=== PATIENT | female | born 1980 | race Caucasian/White ===

== ENCOUNTER → 2016-11-08 | Outpatient (CLI) | payer OTHER, BC ==
[~2016-11-08] MED LIST: BUPR100CR PO; LORTA5 PO; MINO100 PO; TAB-TAB PO
[2016-11-08 10:28] LABS: HEMATOCRIT 36.6 % (35.0-46.0); MEAN CELL VOLUME 86.3 FL (80.0-100.0); MEAN CORPUSCULAR HEMOGLOBIN 29.4 PG (27.0-34.0); MEAN CORPUSCULAR HGB CONC 34.1 % (32.0-36.0); PLATELET COUNT 163 TH/MM3 (150-450); RED BLOOD COUNT 4.24 MIL/MM3 (4.00-5.30); RED CELL DISTRIBUTION WIDTH 13.2 % (11.6-17.2); REVIEW FLAG FINAL; WHITE BLOOD COUNT 5.2 TH/MM3 (4.0-11.0)
[2016-11-08 11:24] LABS: ALKALINE PHOSPHATASE 61 U/L (45-117); BLOOD UREA NITROGEN 8 MG/DL (7-18); GLOMERULAR FILTRATION RATE 80 ML/MIN (>89); GLUCOSE,FASTING 108 MG/DL (74-99)
[2016-11-08 11:25] LABS: ALT (GPT) 19 U/L (10-53); ANION GAP 7 MEQ/L (5-15); AST (GOT) 13 U/L (15-37); BICARBONATE 28.1 MEQ/L (21.0-32.0); CHLORIDE 104 MEQ/L (98-107); HDL CHOLESTEROL 47.9 MG/DL (40.0-60.0); LDL CHOLESTEROL 47 MG/DL (0-99); POTASSIUM 4.4 MEQ/L (3.5-5.1); SODIUM (NA) 139 MEQ/L (136-145); TOTAL BILIRUBIN ADULT 0.7 MG/DL (0.2-1.0)
[2016-11-08 16:12] LABS: HEMOGLOBIN A1a 0.9 %; HEMOGLOBIN A1b 1.5 %; HEMOGLOBIN LA1C 1.9 %; HEMOGLOBIN P3 3.4 %
== END ==
LOC: CLAB 09:42
PROVIDERS: ATTEND Family Medicine
DX: E11.9 Type 2 diabetes mellitus without complications (principal)
CPT/HCPCS: 36415; 80053; 80061; 82043; 83036; 84443; 85027

== ENCOUNTER → 2016-12-07 | Day surgery (SDC) | payer OTHER, BC ==
[~2016-12-07] VITALS: Ht 177.8 cm; Wt 111.9 kg
[~2016-12-07] MED LIST changes: +ACETAMINOPHEN 1000 MG/100 ML VIAL IV ONE; +BUPIVACAINE/EPINEPHRINE 0.5% PF 30 ML VIAL ONE; +CHLORHEXIDINE GLUCONATE 2 % 1 PACK (2 CLOTHS) TOPICAL PRN; +DEXAMETHASONE SOD PHOS 4 MG/ML VIAL ONE; +DO NOT ADM ANY ANTICOAGULANT DRUGS PRN; +FAMOTIDINE 20 MG/2 ML VIAL ONE; +HEPARIN SODIUM - IV 10,000 UNITS/10 ML VIAL ONE; +HEPARIN SODIUM - SQ 10,000 UNITS/ML VIAL ONE; +INSULIN HUMAN REGULAR 1,000 UNITS/10 ML VIAL SQ PRN; +LACTATED RINGER'S 1000 ML IV PRN; +METOPROLOL TARTRATE 25 MG TAB PO PRN; +MIDAZOLAM HCL 2 MG/2 ML VIAL ONE; +ONDANSETRON HCL 4 MG/2 ML VIAL ONE; +POVIDONE IODINE 5% (ANTISEPSIS KIT) 4 APPLICATIONS EACH NARE PRN; +PROPOFOL 200 MG/20 ML AMP IV ONE; +PROTAMINE SULFATE 50 MG/5 ML VIAL ONE; +SODIUM CHLORID 0.9% 500 ML IV PRN; +ceFAZolin 2 GM PREMIX 50 ML ONE; +fentaNYL CITRATE 250 MCG/5 ML AMP ONE; +oxyCODONE/ACETAMINOPHEN 5 MG/325 MG TAB PO PRN
[2016-12-07 08:02] VITALS: BP 121/79; PULSE 62; RESP 18; TEMP 98.1; O2SAT 99
--- NOTE | 2016-12-07 08:31 | HHI.HP ---
History of Present Illness Chief Complaint: R>L LE varicosities History of Present Illness 36 yo female with longstanding varicosities R LE, several episodes of bleeding but no DVT. Worn compression without relief. Presents for R LE stab phlebectomy. No interval changes since seen in clinic. 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 [employer] Home Medications Reported Medications Minocycline 100 Mg [id number] Mg PO BID Ref 0 12/07/16 Bupropion HCl ER 12 HR (Wellbutrin SR 12 HR)100 Mg [id number] Mg PO Q12HR Ref 0 12/07/16 Coded Allergies: No Known Allergies (Unverified , 12/07/16) Review of Systems Constitutional: DENIES: Fever, Chills, Change in appetite Integumentary: DENIES: Abnormal pigmentation, Pruritus, Rash, Nail changes, Breast masses, Breast skin changes, Nipple discharge Physical Exam Vitals/I&O Date Time Temp Pulse Resp B/P Pulse Ox O2 Delivery O2 Flow Rate FiO2 12/07/16 08:02 98.1 62 18 121/79 99 Neuro: alert, oriented HEENT: NC/AT Neck: no JVD Heart: reg rate Lungs: unlabored breathing Vascular: palpable pedal pulses Extremities: R LE with serpentine varicosity R LE coursing from anterior thigh to lateral calf Assessment and Plan Plan R LE stab phlebectomy Consent confirmed, procedure discussed, operative site marked Shiva Lazaro MD Dec 07, 2016 08:31
--- NOTE | 2016-12-07 10:21 | HHI.PR ---
Immediate Post Op Note Procedure Date: Dec 07, 2016 Pre Op Diagnosis: symptomatic R LE varicosities Post Op Diagnosis: symptomatic R LE varicosities Surgeon: Shiva Lazaro Roofer(s): none Procedure: R LE stab phlebectomy (29 incisions) Findings: venous hypertension Complications: none Specimen(s) removed: none for pathology Estimated blood loss: 100 mL Anesthesia: LMA Drains: None Patient to: PACU Patient Condition: Good Date/Time of Procedure: SEE SURGICAL CARE RECORD Shiva Lazaro MD Dec 07, 2016 10:21
[2016-12-07 11:25] VITALS: TEMP 97.9
[2016-12-07 12:45] VITALS: BP 109/65; PULSE 66; RESP 17; O2SAT 97
--- NOTE | 2016-12-08 18:04 | MP ---
cc: ONOFRE LAZARO MD DATE OF SURGERY 12/07/16 PREOPERATIVE DIAGNOSIS Right lower extremity symptomatic varicosities POSTOPERATIVE DIAGNOSIS Right lower extremity symptomatic varicosities PROCEDURE Right lower extremity stab thrombectomy (29 incisions) SURGEON Dudley Lazaro MD ANESTHESIA General INDICATIONS Ms. Mayfield is a very healthy 36 year old lady with symptomatic right lower extremity varicosities. She was taken tot he operating room for stab thrombectomy. She has failed compression therapy. PROCEDURE IN DETAIL Informed consent was obtained from patient. She was taken to the operating room and placed supine on the operating room table. An appropriate time out was taken to ensure the patient identity, operative site, and the planned procedure. The administration of 2 grams of Ancef was initiated prior to the skin incision, will be discontinued after a single preoperative dose. Everyone in the room agreed with the time-out and we proceeded. Her right leg was prepped and draped and a series of stab incisions was made with an 11 blade. The vein was thrombectomized without difficulty. Manual pressure was held for hemostasis. In total, 29 incisions were made. The wounds were infiltrated with Marcaine and closed with 5-0 Chromic. The wound was then dressed and a Kaushal bandage was applied. Sponge, needle counts were correct at the end of the case. I was present and scrubbed for the entire procedure. There were no apparent complications. Onofre Lazaro MD RJMelia/ /10:25 AM /5:48 PM [facility]
== END | disposition home or self-care (01) ==
LOC: HSDC 07:10
PROVIDERS: ATTEND Surgery
DX: I83.891 Varicose veins of right lower extremity with other complications (principal)
CPT/HCPCS: 01520; 37766; J0131; J0690; J1100; J2250; J2405; J3010; J1644; J2720

== ENCOUNTER → 2016-12-20 | Day surgery (SDC) | payer OTHER, BC ==
[~2016-12-20] VITALS: Ht 175.3 cm; Wt 112.3 kg
[~2016-12-20] MED LIST changes: -ACETAMINOPHEN 1000 MG/100 ML VIAL IV ONE; +APREPITANT 40 MG CAP ONE; +BUPIVACAINE HCL PF 0.5% 30 ML VIAL ONE; -BUPIVACAINE/EPINEPHRINE 0.5% PF 30 ML VIAL ONE; -HEPARIN SODIUM - IV 10,000 UNITS/10 ML VIAL ONE; -HEPARIN SODIUM - SQ 10,000 UNITS/ML VIAL ONE; +KETOROLAC TROMETHAMINE 60 MG/2 ML (IM) VIAL IM ONE; -LORTA5 PO; +ONDANSETRON HCL 4 MG/2 ML VIAL IV PUSH ONE; -ONDANSETRON HCL 4 MG/2 ML VIAL ONE; -PROTAMINE SULFATE 50 MG/5 ML VIAL ONE; -TAB-TAB PO; -ceFAZolin 2 GM PREMIX 50 ML ONE; +ceFAZolin INJ 1,000 MG VIAL IV ONE; -oxyCODONE/ACETAMINOPHEN 5 MG/325 MG TAB PO PRN
[2016-12-20 06:39] VITALS: BP 113/75; PULSE 73; RESP 20; TEMP 98.3; O2SAT 99
--- NOTE | 2016-12-20 07:04 | HHI.HP ---
History of Present Illness Chief Complaint: LEFT leg symptomatic venous insufficiency History of Present Illness 36 yo female, otherwise healthy, with symptomatic venous insufficiency L LE. She underwent R LE stab phlebectomy a few weeks ago and did very well. Happy with the results. No history of DVT. Has been wearing compression faithfully. 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 [employer] Home Medications Reported Medications Minocycline 100 Mg [id number] Mg PO DAILY Ref 0 12/07/16 Bupropion HCl ER 12 HR (Wellbutrin SR 12 HR)100 Mg [id number] Mg PO Q12HR Ref 0 12/07/16 Coded Allergies: No Known Allergies (Unverified , 12/20/16) Review of Systems Constitutional: DENIES: Diaphoretic episodes, Fatigue, Fever, Weight gain, Weight loss, Chills, Dizziness, Change in appetite, Night Sweats Cardiovascular: DENIES: Chest pain, Palpitations, Syncope, Dyspnea on Exertion , PND, Lower Extremity Edema, Orthopnea, Claudication Physical Exam Vitals/I&O Date Time Temp Pulse Resp B/P Pulse Ox O2 Delivery O2 Flow Rate FiO2 12/20/16 06:39 98.3 73 20 113/75 99 Neuro: alert, BANKS HEENT: NC/AT Neck: no JVD Heart: reg rate, rhythm Lungs: clear B Vascular: palp DP bilaterally Extremities: R LE incisions healing nicely L LE with lateral thigh varicosity, marked N/A N/A Assessment and Plan Plan Ready for LEFT leg stab phlebectomy. Operative site marked. All questions answered. To OR. Shiva Lazaro MD Dec 20, 2016 07:04
--- NOTE | 2016-12-20 09:01 | HHI.PR ---
Immediate Post Op Note Procedure Date: Dec 20, 2016 Pre Op Diagnosis: L LE venous insufficiency Post Op Diagnosis: L LE venous insufficiency Surgeon: Shiva Lazaro Card Tender(s): none Procedure: L LE stab phlebectomy (35 incisions) Findings: friable veins Complications: none Specimen(s) removed: none for pathology Estimated blood loss: 100mL Anesthesia: LMA Fluids: 1000 mL IVF Patient to: PACU Patient Condition: Good Date/Time of Procedure: SEE SURGICAL CARE RECORD Shiva Lazaro MD Dec 20, 2016 09:01
[2016-12-20 11:25] VITALS: BP 110/61; PULSE 58; RESP 16; TEMP 97.7; O2SAT 98
--- NOTE | 2016-12-22 10:41 | MP ---
cc: SHIVA LAZARO MD DATE OF SURGERY: 12/20/2016 PREOPERATIVE DIAGNOSIS Left upper extremity symptomatic venous insufficiency. POSTOPERATIVE DIAGNOSIS Left upper extremity symptomatic venous insufficiency. PROCEDURE Left lower extremity stab phlebectomy (35 incisions). ATTENDING SURGEON Shiva Lazaro ANESTHESIA LMA. INDICATION Ms. Mayfield is a 36-year-old lady with symptomatic venous insufficiency on the lateral thigh. She has worn compression therapy with inadequate relief. She is taken to the operating room for a stab phlebectomy. DESCRIPTION OF PROCEDURE Informed consent was obtained from the patient. She was taken to the operating room and placed supine on the operating table. An appropriate timeout was taken to ensure the patient's identity, operative site and planned procedure. The administration of two grams of Ancef was initiated prior to skin incision and will be discontinued after the single preoperative dose. Everyone in the room agreed with the timeout and we proceeded. Her left leg was prepped and draped and a series of incisions were made with an 11 blade. In total 35 incisions were made. The veins were phlebectomized without difficulty. Manual pressure was held for hemostasis. The wounds were infiltrated with Marcaine and closed with 4-0 Prolene. The leg was wrapped with Kerlix and Kaushal bandage. The patient was then awoken from anesthesia and transported to the recovery room in stable condition. There were no complications. I was present and scrubbed and performed the entire procedure. Shiva Lazaro MD RJF/DAVID /9:07 AM /10:31 AM
== END | disposition home or self-care (01) ==
LOC: HCVO 05:38
PROVIDERS: ATTEND Surgery
DX: I83.892 Varicose veins of left lower extremity with other complications (principal); I87.2 Venous insufficiency (chronic) (peripheral); Z98.84 Bariatric surgery status
CPT/HCPCS: 01520; 37766; J0690; J1100; J1885; J2250; J2405; J3010; J7120; J8501

== ENCOUNTER → 2017-06-19 | Outpatient (CLI) | payer OTHER, BC ==
[~2017-06-19] MED LIST changes: -APREPITANT 40 MG CAP ONE; -BUPIVACAINE HCL PF 0.5% 30 ML VIAL ONE; -CHLORHEXIDINE GLUCONATE 2 % 1 PACK (2 CLOTHS) TOPICAL PRN; -DEXAMETHASONE SOD PHOS 4 MG/ML VIAL ONE; -DO NOT ADM ANY ANTICOAGULANT DRUGS PRN; -FAMOTIDINE 20 MG/2 ML VIAL ONE; -INSULIN HUMAN REGULAR 1,000 UNITS/10 ML VIAL SQ PRN; -KETOROLAC TROMETHAMINE 60 MG/2 ML (IM) VIAL IM ONE; -LACTATED RINGER'S 1000 ML IV PRN; -METOPROLOL TARTRATE 25 MG TAB PO PRN; -MIDAZOLAM HCL 2 MG/2 ML VIAL ONE; -ONDANSETRON HCL 4 MG/2 ML VIAL IV PUSH ONE; -POVIDONE IODINE 5% (ANTISEPSIS KIT) 4 APPLICATIONS EACH NARE PRN; -PROPOFOL 200 MG/20 ML AMP IV ONE; -SODIUM CHLORID 0.9% 500 ML IV PRN; -ceFAZolin INJ 1,000 MG VIAL IV ONE; -fentaNYL CITRATE 250 MCG/5 ML AMP ONE
[2017-06-19 13:18] LABS: ALT (GPT) 18 U/L (10-53); ANION GAP 7 MEQ/L (5-15); AST (GOT) 9 U/L (15-37); BICARBONATE 27.4 MEQ/L (21.0-32.0); BLOOD UREA NITROGEN 9 MG/DL (7-18); CHLORIDE 105 MEQ/L (98-107); GLOMERULAR FILTRATION RATE 85 ML/MIN (>89); GLUCOSE,FASTING 94 MG/DL (74-99); POTASSIUM 3.9 MEQ/L (3.5-5.1); SODIUM (NA) 139 MEQ/L (136-145)
[2017-06-19 13:21] LABS: ALKALINE PHOSPHATASE 76 U/L (45-117); TOTAL BILIRUBIN ADULT 0.7 MG/DL (0.2-1.0)
== END ==
LOC: CLAB 11:52
PROVIDERS: ATTEND Family Medicine
DX: E11.9 Type 2 diabetes mellitus without complications (principal)
CPT/HCPCS: 36415; 80053

== ENCOUNTER 2017-07-08 07:40 | Emergency (ER) | payer BC, OTHER ==
[~2017-07-08] VITALS: Ht 175.3 cm; Wt 112.0 kg
[2017-07-08 07:42] VITALS: PULSE 80; RESP 16; TEMP 97.7; O2SAT 99
[2017-07-08] MEDS ORDERED: SODIUM CHLOR 0.9% 1000 ML INJ 1,000 ML IV SCH (07:49)
[2017-07-08 08:00] VITALS: RESP 16; O2SAT 100
[2017-07-08] MEDS ORDERED: SODIUM CHLORIDE 0.9% FLUSH 10 ML FLUSH IV FLUSH PRN (08:00)
[2017-07-08] MEDS ORDERED: ONDANSETRON HCL 4 MG/2 ML VIAL IVP ONE (08:00)
[2017-07-08] MEDS ORDERED: KETOROLAC TROMETHAMINE 30 MG/ML (IVP) VIAL IVP ONE (08:00)
--- NOTE | 2017-07-08 08:02 | PD ---
HPI Chief Complaint: Flank/Kidney Pain Time Seen by Provider: 07:48 Travel History International Travel<30 days: No Contact w/Intl Traveler<30days: No Traveled to known affect area: No History of Present Illness HPI 37-year-old female reports sudden onset severe left flank pain at 5 AM, 3 hours prior to ER arrival. Nausea and vomiting accompany symptoms. Similar episode in the past with kidney stones. Pain is severe. Patient can find a position of comfort. No fever. Timing constant. PFSH Past Medical History Hx Anticoagulant Therapy: No Cancer: Yes (UTERINE AND CERVICAL CANCER) Cardiovascular Problems: No Diabetes: No Endocrine: No Genitourinary: No Hepatitis: No Hiatal Hernia: No Immune Disorder: No Musculoskeletal: No Neurologic: No Psychiatric: No Reproductive: No Respiratory: No Thyroid Disease: No ?: Not Past Surgical History Abdominal Surgery: Yes (GASTRIC SLEEVE) AICD: No Cardiac Surgery: No Cholecystectomy: Yes Ear Surgery: No Endocrine Surgery: No Eye Surgery: No Genitourinary Surgery: No Gynecologic Surgery: Yes (HYSTERECTOMY) Hysterectomy: Yes Joint Replacement: No Oral Surgery: No Pacemaker: No Thoracic Surgery: Yes (BREAST REDUCTION) Social History Alcohol Use: No Tobacco Use: No Substance Use: No Allergies-Medications (Allergen,Severity, Reaction): Coded Allergies: No Known Allergies (Unverified Adverse Reaction, Unknown, 07/08/17) Reported Meds & Prescriptions Reported Meds & Active Scripts Active Percocet (Oxycodone-Acetaminophen) 7.5-325 mg Tab 1 Tab PO Q6H PRN DO NOT TAKE XANAX IF YOU TAKE PERCOCET. Flomax (Tamsulosin HCl) 0.4 Mg Cap 0.4 Mg PO HS Zofran Odt (Ondansetron Odt) 4 Mg Tab 4 Mg SL Q8HR PRN Reported Xanax (Alprazolam) 0.25 Mg Tab 0.25 Mg PO Q4H PRN Multivitamins (Multiple Vitamin) 1 Cap Cap 1 Cap PO DAILY Minocycline (Minocycline HCl) 100 Mg Cap 100 Mg PO BID Wellbutrin SR 12 HR (Bupropion HCl) 100 Mg Tab 100 Mg PO TID Review of Systems Except as stated in HPI: all other systems reviewed are Neg General / Constitutional: No: Fever Physical Exam Narrative GENERAL: 37-year-old female moderate to severe distress vomiting SKIN: Focused skin assessment warm/dry. HEAD: Atraumatic. Normocephalic. EYES: Pupils equal and round. No scleral icterus. No injection or drainage. ENT: No nasal bleeding or discharge. Mucous membranes pink and moist. NECK: Trachea midline. No JVD. CARDIOVASCULAR: Regular rate and rhythm. No murmur appreciated. RESPIRATORY: No accessory muscle use. Clear to auscultation. Breath sounds equal bilaterally. GASTROINTESTINAL: Abdomen soft, non-tender, nondistended. Hepatic and splenic margins not palpable. Minimal tenderness on the left flank. MUSCULOSKELETAL: No obvious deformities. No clubbing. No cyanosis. No edema. NEUROLOGICAL: Awake and alert. No obvious cranial nerve deficits. Motor grossly within normal limits. Normal speech. PSYCHIATRIC: Appropriate mood and affect; insight and judgment normal. Data Data Last Documented VS Vital Signs Date Time Temp Pulse Resp B/P (MAP) Pulse Ox O2 Delivery O2 Flow Rate FiO2 07/08/17 09:43 16 07/08/17 08:00 100 Room Air 07/08/17 07:42 97.7 80 Orders Orders Urinalysis - C+S If Indicated (07/08/17 07:41) Basic Metabolic Panel (Bmp) (07/08/17 07:49) Complete Blood Count With Diff (07/08/17 07:49) Ct Abd/Pel W/O Iv Contrast (07/08/17 07:49) Iv Access Insert/Monitor (07/08/17 07:49) Ecg Monitoring (07/08/17 07:49) Oximetry (07/08/17 07:49) Ondansetron Inj (Zofran Inj) (07/08/17 08:00) Sodium Chlor 0.9% 1000 Ml Inj (Ns 1000 M (07/08/17 07:49) Sodium Chloride 0.9% Flush (Ns Flush) (07/08/17 08:00) Ketorolac Inj (Toradol Inj) (07/08/17 08:00) Labs Laboratory Tests Test 07/08/17 07:50 07/08/17 09:35 White Blood Count 10.2 TH/MM3 Red Blood Count 4.52 MIL/MM3 Hemoglobin 13.2 GM/DL Hematocrit 39.2 % Mean Corpuscular Volume 86.7 FL Mean Corpuscular Hemoglobin 29.1 PG Mean Corpuscular Hemoglobin Concent 33.6 % Red Cell Distribution Width 13.0 % Platelet Count 193 TH/MM3 Mean Platelet Volume 7.8 FL Neutrophils (%) (Auto) 84.6 % Lymphocytes (%) (Auto) 11.0 % Monocytes (%) (Auto) 3.6 % Eosinophils (%) (Auto) 0.6 % Basophils (%) (Auto) 0.2 % Neutrophils # (Auto) 8.6 TH/MM3 Lymphocytes # (Auto) 1.1 TH/MM3 Monocytes # (Auto) 0.4 TH/MM3 Eosinophils # (Auto) 0.1 TH/MM3 Basophils # (Auto) 0.0 TH/MM3 CBC Comment DIFF FINAL Differential Comment Blood Urea Nitrogen 9 MG/DL Creatinine 0.98 MG/DL Random Glucose 159 MG/DL Calcium Level 8.8 MG/DL Sodium Level 137 MEQ/L Potassium Level 3.9 MEQ/L Chloride Level 105 MEQ/L Carbon Dioxide Level 25.5 MEQ/L Anion Gap 7 MEQ/L Estimat Glomerular Filtration Rate 64 ML/MIN Urine Collection Type CLEAN CATCH Urine Color YELLOW Urine Turbidity SLIGHT Urine pH 7.0 Urine Specific Lawrence 1.020 Urine Protein TRACE mg/dL Urine Glucose (UA) NEG mg/dL Urine Ketones 15 mg/dL Urine Occult Blood LARGE Urine Nitrite NEG Urine Bilirubin NEG Urine Leukocyte Esterase NEG Urine RBC 100-200 /hpf Urine WBC 6-8 /hpf Urine Squamous Epithelial Cells > 8 /hpf Urine Bacteria OCC /hpf Microscopic Urinalysis Comment CULT NOT INDICATED Urine Collection Time 09:35 MDM Medical Decision Making Medical Screen Exam Complete: Yes Emergency Medical Condition: Yes Medical Record Reviewed: Yes Differential Diagnosis Constipation, Gastritis, Acute Cholecystitis, Biliary Colic, Pancreatitis, BURGOS , Hepatitis, Bowel Obstruction, Cystitis, Mesenteric Ischemia, AAA, Appendicitis , Renal Stone/Hydronephrosis, GERD, perforated viscous Narrative Course CBC & BMP Diagram 07/08/17 07:50 Calcium Level 8.8 Last 24 hours Impressions Abdomen/Pelvis CT 07/08/17 1595 Signed Impressions: Service Date/Time: Saturday, July 08, 2017 08:41 - CONCLUSION: 1. 6.6 mm stone in the left ureteropelvic junction causing moderate left sided hydronephrosis. 2. Left nephrolithiasis. 3. Normal right kidney collecting system. 4. No significant abnormalities. Cam Mo MD Patient had an excellent response to IV Toradol. Flomax prescription along with Zofran and then Percocet. Return precautions discussed. Follow-up with urology. UA: NO UTI Diagnosis Primary Impression: Ureteral stone with hydronephrosis Additional Impression: Nausea & vomiting Qualified Codes: R11.2 - Nausea with vomiting, unspecified Referrals: Roge Conrad MD 3 days UROLOGIST. 6MM L UPJ STONE W MODERATE HYDRO Additional Instructions: You have a choice when it comes to health care, and we are glad that you chose [facility]. Hopefully, we have met your expectations on today's visit. You are welcome to return to [facility] at any time, as we are committed to meeting the health care needs of our community. Med/Other Pt SpecificInfo: Prescription(s) given Scripts Oxycodone-Acetaminophen (Percocet) 7.5-325 mg Tab 1 TAB PO Q6H Y for PAIN SCALE 6 TO 10, #20 TAB 0 Refills DO NOT TAKE XANAX IF YOU TAKE PERCOCET. Prov: Barry Aj MD 07/08/17 Tamsulosin (Flomax) 0.4 Mg Cap 0.4 MG PO HS for Manage Prostate Problems, #5 CAP 0 Refills Prov: Barry Aj MD 07/08/17 Ondansetron Odt (Zofran Odt) 4 Mg Tab 4 MG SL Q8HR Y for Nausea/Vomiting, #15 TAB 0 Refills Prov: Barry Aj MD 07/08/17 Disposition: 01 DISCHARGE HOME Condition: Stable Barry Aj MD Jul 08, 2017 08:02
[2017-07-08] MEDS ORDERED: MULTCAP3 PO (08:07)
[2017-07-08] MEDS ORDERED: ALPR.25 PO (08:07)
[2017-07-08 08:24] LABS: AUTOMATED NEUTROPHIL # 8.6 TH/MM3 (1.8-7.7); BASOPHIL % 0.2 % (0.0-2.0); EOSINOPHIL # 0.1 TH/MM3 (0-0.4); EOSINOPHIL % 0.6 % (0.0-4.0); HEMATOCRIT 39.2 % (35.0-46.0); HEMO FLAGS DIFF FINAL; LYMPHOCYTE # 1.1 TH/MM3 (1.0-4.8); MEAN CELL VOLUME 86.7 FL (80.0-100.0); MEAN CORPUSCULAR HEMOGLOBIN 29.1 PG (27.0-34.0); MEAN CORPUSCULAR HGB CONC 33.6 % (32.0-36.0); MONO % 3.6 % (0.0-8.0); NEUT % 84.6 % (16.0-70.0); PLATELET COUNT 193 TH/MM3 (150-450); POTASSIUM 3.9 MEQ/L (3.5-5.1); RED BLOOD COUNT 4.52 MIL/MM3 (4.00-5.30); WHITE BLOOD COUNT 10.2 TH/MM3 (4.0-11.0)
[2017-07-08 08:27] LABS: BICARBONATE 25.5 MEQ/L (21.0-32.0)
[2017-07-08 08:30] VITALS: BP 102/52; PULSE 55; RESP 16; O2SAT 99
--- NOTE | 2017-07-08 09:00 | RADRPT ---
EXAM DATE/TIME: 07/08/2017 08:41 [facility] COMPARISON: CT ABDOMEN & PELVIS W/O CONTRAST, September 10, 2015, 8:56. INDICATIONS : Left flank pain. ORAL CONTRAST: No oral contrast ingested. RADIATION DOSE: 24.93 CTDIvol (mGy) MEDICAL HISTORY : Renal calculi. Cevical cancer. SURGICAL HISTORY : Cholecystectomy. Hysterectomy.Gastric sleeve. ENCOUNTER: Initial ACUITY: 1 day PAIN SCALE: 5/10 LOCATION: Left flank TECHNIQUE: Volumetric scanning of the abdomen and pelvis was performed. Using automated exposure control and ad justment of the mA and/or kV according to patient size, radiation dose was kept as low as reasonably achievable to obtain optimal diagnostic quality images. DICOM format image data is available electro nically for review and comparison. FINDINGS: LOWER LUNGS: The visualized lower lungs are clear. LIVER: Homogeneous density without lesion. There is no dilation of the biliary tree. Post cholecystectomy c lips are noted. SPLEEN: Normal size without lesion. PANCREAS: Within normal limits. KIDNEYS: A 6.6 mm calculus is identified in the left ureteropelvic junction causing moderate hydronephrosis. A tiny pockets measuring 1-2 mm is identified in the upper pole of the left kidney. Right kidney is unremarkable without evidence of nephrolithiasis or hydronephrosis. ADRENAL GLANDS: Within normal limits. VASCULAR: There is no aortic aneurysm. BOWEL/MESENTERY: Postsurgical changes are noted along the stomach. The stomach, small bowel, and colon demonstrate no acute abnormality. There is no free intraperitoneal air or fluid. ABDOMINAL WALL: Within normal limits. RETROPERITONEUM: There is no lymphadenopathy. BLADDER: No wall thickening or mass. REPRODUCTIVE: Within normal limits. INGUINAL: There is no lymphadenopathy or hernia. MUSCULOSKELETAL: Within normal limits for patient age. CONCLUSION: 1. 6.6 mm stone in the left ureteropelvic junction causing moderate left sided hydronephrosis. 2. Left nephrolithiasis. 3. Normal right kidney collecting system. 4. No significant abnormalities. Cam Mo MD on July 08, 2017 at 8:54 Board Certified Radiologist. This report was verified electronically.
[2017-07-08 09:45] VITALS: BP 115/64; PULSE 62; RESP 16; O2SAT 100
[2017-07-08 09:45] LABS: BLOOD, URINE LARGE (NEG); GLUCOSE,URINE NEG (NEG); KETONE, URINE 15 mg/dL (NEG); NITRITE,URINE NEG (NEG)
[2017-07-08 09:49] LABS: METHOD OF COLLECTION CLEAN CATCH; URINE COLOR YELLOW (YELLW/STRAW)
[2017-07-08 09:50] LABS: BACTERIA, URINE OCC /hpf; COMMENT (UR) CULT NOT INDICATED; CULTURE IF INDICATED CULT NOT INDICATED; RBC, URINE 100-200 /hpf (0-3); SQUAMOUS EPITHELIAL CELL URINE > 8 /hpf (0-5)
[2017-07-08] MEDS ORDERED: PERC7.5T13 PO (09:52)
[2017-07-08] MEDS ORDERED: ZOFR4TAB3 SL (09:52)
[2017-07-08] MEDS ORDERED: TAMS5CAP PO (09:52)
[2017-07-08] MEDS ORDERED: MORPHINE SULFATE 4 MG/ML INJ IV PUSH ONE (10:15)
[2017-07-08] MEDS ORDERED: KETOROLAC TROMETHAMINE 30 MG/ML (IVP) VIAL IV PUSH ONE (10:15)
[2017-07-08 10:45] VITALS: BP 112/75; PULSE 72; RESP 18; O2SAT 99
== END 2017-07-08 11:20 | disposition home or self-care (01) ==
LOC: PHED 07:40
DX: N13.2 Hydronephrosis with renal and ureteral calculous obstruction (principal)
CPT/HCPCS: 74176; 80048; 81001; 85025; 96361; 96374; 96375; 96376; 99285; J1885; J2270; J2405; J7030

== ENCOUNTER → 2017-07-12 | Day surgery (SDC) | payer OTHER ==
[~2017-07-12] VITALS: Ht 175.3 cm; Wt 110.9 kg
[~2017-07-12] MED LIST changes: +ACETAMINOPHEN 1000 MG/100 ML 100 ML IV ONE; +ALPR.25 PO; +APREPITANT 40 MG CAP ONE; +CHLORHEXIDINE GLUCONATE 2 % 1 PACK (2 CLOTHS) TOPICAL PRN; +DEXAMETHASONE SOD PHOS 4 MG/ML VIAL IV ONE; +DO NOT ADM ANY ANTICOAGULANT DRUGS PRN; +FAMOTIDINE 20 MG/2 ML VIAL ONE; +IOHEXOL 300 INJ 100 ML IV ONE; +KETOROLAC TROMETHAMINE 30 MG/ML (IVP) VIAL IV PUSH ONE; +KETOROLAC TROMETHAMINE 30 MG/ML (IVP) VIAL ONE; +LACTATED RINGER'S 1000 ML INJ 1,000 ML IV ONE; +LACTATED RINGER'S 1000 ML IV PRN; +LIDOCAINE HCL 1% PF 5 ML SYRINGE OTHER ONE; +METOPROLOL TARTRATE 25 MG TAB PO PRN; +MIDAZOLAM HCL 2 MG/2 ML VIAL IV ONE; +MORPHINE SULFATE 4 MG/ML INJ IV PUSH PRN; +MULTCAP3 PO; +ONDANSETRON HCL 4 MG/2 ML VIAL IV PUSH ONE; +PERC7.5T13 PO; +POVIDONE IODINE 5% (ANTISEPSIS KIT) 4 APPLICATIONS EACH NARE PRN; +PROPOFOL 200 MG/20 ML AMP IV ONE; +SODIUM CHLORID 0.9% 500 ML IV PRN; +TAMS5CAP PO; +ZOFR4TAB3 SL; +ceFAZolin 2 GM PREMIX 50 ML IV SCH; +oxyCODONE/ACETAMINOPHEN 5 MG/325 MG TAB PO PRN
[2017-07-12 18:15] VITALS: BP 117/73; PULSE 71; RESP 20; TEMP 98; O2SAT 100
--- NOTE | 2017-07-13 07:07 | MP ---
cc: BRUCE CARLTON MD DATE OF SURGERY 07/12/2017 PREOPERATIVE DIAGNOSIS 1. Left proximal ureteral calculus. 2. Left flank pain. 3. Left renal calculi. POSTOPERATIVE DIAGNOSIS 1. Left proximal ureteral calculus. 2. Left flank pain. 3. Left renal calculi. PROCEDURE PERFORMED 1. Cystourethroscopy. 2. Left retrograde pyelogram. 3. Left ureteroscopy. 4. Laser lithotripsy. 5. Stone basketing with manipulation and removal. 6. Insertion of left renal stent. SURGEON MD [place] ANESTHESIA General. COMPLICATIONS None. PREOPERATIVE ANTIBIOTICS Ancef 2 grams IV. DRAINS 6 x 26 double-J left ureteral stent. SPECIMENS Left ureteral calculus for analysis. DISPOSITION Stable to Recovery. INDICATIONS The patient is a 37-year-old female with a history of gastric bypass in the past as well as kidney stones. She presented to [facility] ER on Sunday with left flank pain. The patient had CT of the abdomen and pelvis without contrast done which showed a 6.6 mm left proximal ureteral stone with mild hydronephrosis and several small/tiny stones in the left kidney. She was managed conservatively. She was seen in the office yesterday but continued to have severe left flank pain despite taking Percocet. She also had mild nausea. Due to these findings she was then set up for possible definitive treatment of her stones. After the risks, benefits and alternatives were explained to the patient, the patient would like to proceed and informed consent was obtained. DETAILS OF PROCEDURE The patient was properly identified, brought back to the cystoscopy suite where she was laid supine on the cystoscopy table. A proper time-out was performed under the direction of Anesthesiology and the patient was intubated, induced under general aesthetic. Preop antibiotics in the form of Ancef 2 grams IV were given 1 hour before the start of the procedure. The patient was then placed in dorsal lithotomy position, prepped and draped in normal sterile surgical fashion. A rigid cystoscope was carefully passed into her bladder per urethra without difficulty. The bladder was carefully examined with no evidence of tumor, stones, diverticula or trabeculations. Both ureteral orifices were identified in normal anatomical location. A 5-Hungarian open-end ureteral catheter was inserted at the site of the left ureteral orifice. Left retrograde pyelogram was performed which showed a filling defect in her proximal ureter with mild hydronephrosis behind the defect consistent with the stone seen on CT. Through the indwelling ureteral catheter, I then passed a guidewire up into her left kidney without any resistance. All catheters were then removed leaving the wire in place. I then used a semi-rigid self-dilating ureteroscope, went alongside the wire up into her left ureter until I came across the stone in her proximal ureter. Using a 365 micron laser fiber I was able to break this up into several smaller fragments. The largest fragment did go proximal into her kidney. Several smaller fragments I was able to remove with a 0-tip basket. These were sent off for analysis. I then switched out to the flexible ureteroscope. Going alongside the wire, I went up into her left kidney. Her left kidney was carefully examined. The two small stones that were seen on CT were seen and these were removed with the 0 tip basket. The larger fragment from the previous ureteral stone was also seen. This was grasped with a basket and removed in its entirety. The rest of the ureter and kidney appeared to be wide open with no evidence any residual stone fragments. However, due to some inflammation where the proximal ureteral stone was, I decidedly to leave a stent. A 6 x 26 stent was then back-loaded over the wire, up into the left kidney. The string was left on the distal portion of the end. The bladder was then drained. The string was secured to her mons pubis area. This concluded the procedure. The patient was extubated and sent to Recovery in stable condition. She will be discharged home and instructed to remove the stent tomorrow morning. She will then follow up as scheduled for a postoperative visit. MD RAMON Scherer/MANUELA /5:39 PM /6:47 AM
== END | disposition home or self-care (01) ==
LOC: HSDC 13:01
PROVIDERS: ATTEND Urology
DX: N20.2 Calculus of kidney with calculus of ureter (principal); R10.32 Left lower quadrant pain
CPT/HCPCS: 00873; 52352; 52356; 82365; 82370; 88300; C1769; J0131; J0690; J1100; J1885; J2250; J2405; J3010; J7120; J8501; Q9967